=== PATIENT | female | born 1960 | race Two or more races ===

== ENCOUNTER 2021-01-24 14:21 | Outpatient (CLI) | payer OTHER | END 2021-01-24 23:59 | disposition home or self-care (01) | LOC: LAB 14:21 | PROVIDERS: ATTEND Specialist | DX: Z01.812 Encounter for preprocedural laboratory examination (principal); Z20.822 Contact with and (suspected) exposure to COVID-19 | CPT/HCPCS: C9803; U0003 ==

== ENCOUNTER 2021-01-29 06:57 | Day surgery (SDC) | payer OTHER ==
[2021-01-29] MEDS ORDERED: FENTANYL PF 100MCG/2ML AMPUL ONE (09:24)
[2021-01-29] MEDS ORDERED: MIDAZOLAM HCL 2 MG/2ML VIAL ONE (09:24)
[2021-01-29] MEDS ORDERED: FAMOTIDINE/PF INJ 20 MG/2 ML VIAL IV ONE (09:25)
[2021-01-29] MEDS ORDERED: SCOPOLAMINE PATCH 1 MG/72HR TD ONE (09:26)
[2021-01-29] MEDS ORDERED: BUPIVACAINE 0.25% 75 MG/30 ML VIAL ONE (09:56)
== END 2021-01-29 11:55 | disposition home or self-care (01) ==
LOC: DS 06:57
PROVIDERS: ATTEND Specialist
DX: M65.4 Radial styloid tenosynovitis [de Quervain] (principal); M65.312 Trigger thumb, left thumb; E78.5 Hyperlipidemia, unspecified; E11.9 Type 2 diabetes mellitus without complications; Z79.84 Long term (current) use of oral hypoglycemic drugs; Z79.899 Other long term (current) drug therapy
CPT/HCPCS: 25000; 26055; 82962 ×2; J0690; J1100; J2250; J2405; J2704; J2765; J3010; J3490 ×3